=== PATIENT | male | born 1990 | race Caucasian/White ===

== ENCOUNTER 2016-06-22 01:40 | Emergency (ER) | payer OTHER ==
[~2016-06-22] VITALS: Ht 180.3 cm; Wt 76.6 kg
[~2016-06-22 01:40] MED LIST: DICL75 PO; VENL25TA14 PO
[2016-06-22 01:50] VITALS: BP 128/61; PULSE 66; RESP 18; TEMP 98.2; O2SAT 99
[2016-06-22 03:21] VITALS: BP 126/66; PULSE 68; RESP 18; TEMP 98.2; O2SAT 99
[2016-06-22] MEDS ORDERED: VENL37.5 PO (03:21)
--- NOTE | 2016-06-22 04:09 | RADHPO ---
EXAM DATE/TIME: 06/22/2016 03:45 [place] COMPARISON: No previous studies available for comparison. INDICATIONS : Right hand, third and fouth digit pain. MEDICAL HISTORY : None. SURGICAL HISTORY : None. ENCOUNTER: Initial ACUITY: 1 day PAIN SCORE: 9/10 LOCATION: Right upper extremity FINDINGS: Three view examination of the right hand demonstrates no soft tissue swelling, dislocation, or fractu re. The carpal bones appear intact. The interphalangeal and metacarpophalangeal joints are intact. Bony mineralization is normal. CONCLUSION: No fracture of the right hand. No radiopaque foreign body. Demetrio Estrella MD on June 22, 2016 at 4:08 Board Certified Radiologist. This report was verified electronically.
--- NOTE | 2016-06-22 04:27 | PD ---
HPI Chief Complaint: Musculoskeletal Complaint Time Seen by Provider: 04:08 Travel History International Travel<30 days: No Contact w/Intl Traveler<30days: No Traveled to known affect area: No History of Present Illness HPI The patient is a 26-year-old right-hand dominant male who jammed his right long and ring fingers at 0 600 on a metal truck door. 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 He comes in today with painful fingers, subungual hematomas in those fingers. His last tetanus shot was in 2014. PFSH Past Medical History Cancer: No Cardiovascular Problems: No Diminished Hearing: No Endocrine: No Gastrointestinal Disorders: No Genitourinary: No Immune Disorder: No Implanted Vascular Access Dvce: No Musculoskeletal: No Neurologic: No Psychiatric: No Reproductive: No Respiratory: No Integumentary: Yes (Right groin abcess) Immunizations Current: Yes Tetanus Vaccination: < 5 Years Influenza Vaccination: No Past Surgical History Other Surgery: Yes (LACERATED LIVER) Social History Alcohol Use: Yes (2 PER DAY) Tobacco Use: Yes (1/2 PPD) Substance Use: No (Denies) Allergies-Medications (Allergen,Severity, Reaction): Coded Allergies: No Known Allergies (Verified , 06/22/16) Reported Meds & Prescriptions Reported Meds & Active Scripts Active Reported Effexor (Venlafaxine HCl) 37.5 Mg Tab 37.5 Mg PO DAILY Review of Systems Except as stated in HPI: all other systems reviewed are Neg Physical Exam Narrative GENERAL: Well-nourished, well-developed patient. In moderate apparent distress with his subungual hematomas. His vital signs are normal. SKIN: Warm and dry. HEAD: Normocephalic. EYES: No scleral icterus. No injection or drainage. NECK: Supple, trachea midline. No JVD or lymphadenopathy. CARDIOVASCULAR: Regular rate and rhythm without murmurs, gallops, or rubs. RESPIRATORY: Breath sounds equal bilaterally. No accessory muscle use. GASTROINTESTINAL: Abdomen soft, non-tender, nondistended. MUSCULOSKELETAL: No cyanosis, or edema. There are subungual hematomas but no bony deformity on the right fourth and fifth fingers. Good capillary refill is present on all fingers. BACK: Nontender without obvious deformity. No CVA tenderness. Data Data Last Documented VS Vital Signs Date Time Temp Pulse Resp B/P Pulse Ox O2 Delivery O2 Flow Rate FiO2 06/22/16 03:24 64 18 06/22/16 03:21 98.2 126/66 99 Orders Hand, Complete ([id number]) (06/22/16 ) MDM Medical Decision Making Medical Screen Exam Complete: Yes Emergency Medical Condition: Yes Medical Record Reviewed: Yes Interpretation(s) X-rays of the right hand show no fractures of the right hand. Differential Diagnosis Fractured fingers, somewhat low hematoma fingers, finger nail avulsion Narrative Course There is no evidence of nail avulsion. The patient has no fractures of the fingers. Procedures Procedure Narrative A high temporal artery loop was used to create holes in the fingernails and let the blood out of the subungual hematomas. Blood came out of both fingernails and this relieved the pressure. The patient then soaked his fingers and peroxide. He tolerated the procedure fairly well. Diagnosis Primary Impression: Subungual hematoma of right middle finger Additional Impression: Subungual hematoma of right ring finger Ruled Out: Fracture, finger Additional Instructions: As we discussed, soak the fingers and peroxide to get as much blood out from underneath the fingernails as possible. If you have any problems like infection , please return to emergency department. Med/Other Pt SpecificInfo: No Change to Meds Disposition: 01 DISCHARGE HOME Condition: Stable Juan Antonio Mcginnis MD Jun 22, 2016 04:27
[2016-06-22] MEDS ORDERED: oxyCODONE/ACETAMINOPHEN 7.5 MG/325 MG TAB PO ONE (04:30)
[2016-06-22 04:36] VITALS: BP 124/66; PULSE 72; RESP 18; O2SAT 99
== END 2016-06-22 04:37 | disposition home or self-care (01) ==
LOC: PHED 01:40
DX: S60.131A Contusion of right middle finger with damage to nail, initial encounter (principal); S60.141A Contusion of right ring finger with damage to nail, initial encounter; F17.200 Nicotine dependence, unspecified, uncomplicated; Z87.2 Personal history of diseases of the skin and subcutaneous tissue; W23.1XXA Caught, crushed, jammed, or pinched between stationary objects, initial encounter; Y99.0 Civilian activity done for income or pay
CPT/HCPCS: 11740; 73130

== ENCOUNTER 2016-09-24 15:57 | Emergency (ER) | payer OTHER ==
[~2016-09-24] VITALS: Ht 180.3 cm; Wt 72.2 kg
[~2016-09-24 15:57] MED LIST changes: -DICL75 PO; -VENL25TA14 PO; +VENL37.5 PO
[2016-09-24 16:01] VITALS: BP 118/72; PULSE 79; RESP 16; TEMP 98.5; O2SAT 97
--- NOTE | 2016-09-24 16:17 | PD ---
HPI Chief Complaint: Laceration/Skin Injury Time Seen by Provider: 16:16 Travel History International Travel<30 days: No Contact w/Intl Traveler<30days: No Traveled to known affect area: No History of Present Illness HPI 26-year-old male presents to the emergency department for evaluation of laceration to the right anterior knee that occurred just prior to arrival. 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 He states his tetanus immunization was 5 years ago. He has no chronic medical problems and takes no medications. He denies any other injuries. PFSH Past Medical History Depression: Yes Cancer: No Cardiovascular Problems: No Diminished Hearing: No Endocrine: No Gastrointestinal Disorders: No Genitourinary: No Immune Disorder: No Implanted Vascular Access Dvce: No Musculoskeletal: No Neurologic: No Psychiatric: No Reproductive: No Respiratory: No Integumentary: Yes (Right groin abcess) Immunizations Current: Yes Tetanus Vaccination: < 5 Years Influenza Vaccination: No Past Surgical History Other Surgery: Yes (LACERATED LIVER) Social History Alcohol Use: Yes (~4 X WEEK) Tobacco Use: Yes (1PPD) Substance Use: No (Denies) Allergies-Medications (Allergen,Severity, Reaction): Coded Allergies: No Known Allergies (Verified , 09/24/16) Reported Meds & Prescriptions Reported Meds & Active Scripts Active Reported Effexor (Venlafaxine HCl) 37.5 Mg Tab 37.5 Mg PO DAILY Review of Systems Except as stated in HPI: all other systems reviewed are Neg Physical Exam Narrative GENERAL: Well-nourished, well-developed male patient, ambulatory. Afebrile. SKIN: Focused skin assessment warm/dry. Patient has a 3 cm superficial laceration to the right lower anterior knee. The base this wound is easily visualized with help bleeding and there is no evidence of foreign body. HEAD: Normocephalic. Atraumatic. EYES: No scleral icterus. No injection or drainage. NECK: Supple, trachea midline. No JVD or lymphadenopathy. CARDIOVASCULAR: Regular rate and rhythm without murmurs, gallops, or rubs. RESPIRATORY: Breath sounds equal bilaterally. No accessory muscle use. Lungs sounds are clear to auscultation. GASTROINTESTINAL: Abdomen soft, non-tender, nondistended. MUSCULOSKELETAL: No cyanosis, or edema. Patient is full flexion-extension of the right knee without difficulty. BACK: Nontender without obvious deformity. No CVA tenderness. Data Data Last Documented VS Vital Signs Date Time Temp Pulse Resp B/P Pulse Ox O2 Delivery O2 Flow Rate FiO2 09/24/16 16:01 98.5 79 16 118/72 97 Orders Tetanus/Diphtheria Tox Adult (Tetanus/Di (09/24/16 16:30) MDM Medical Decision Making Medical Screen Exam Complete: Yes Emergency Medical Condition: Yes Medical Record Reviewed: Yes Differential Diagnosis Laceration versus abrasion versus contusion Narrative Course 26-year-old male presents to the emergency department for evaluation of laceration to the right knee. He gives verbal consent for laceration repair. Patient is provided Yannick bandage and crutches to prevent flexion of the right knee. He is prescribed Keflex as well as ibuprofen for pain. He is instructed on proper wound care. He is return for any acute worsening of symptoms. He verbalizes agreement and understanding. 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 The patient was discharged in stable condition with instructions, including return instructions and follow up instructions. Procedures Procedure Narrative LACERATION LOCATION: Right knee LENGTH: 3 cm NUMBER OF STITCHES/FLYNN: 4 flynn REPAIR: The area of the laceration was prepped with Betadine and sterilely draped. The wound was copiously irrigated and explored without evidence of foreign body, tendon injury or neurovascular injury. The wound was closed using flynn. This was a single layer repair. A sterile dressing was applied. The patient was advised to keep the dressing clean and dry. Patient tolerated the procedure well. Diagnosis Primary Impression: Laceration of knee without complication Qualified Code: S81.011A - Laceration of knee without complication, right, initial encounter Referrals: Primary Care Physician call for appointment Patient Instructions: Care For Your Stitches (ED), General Instructions, Laceration (ED) Departure Forms: Tests/Procedures, Work Release Enter return to work date: October 04, 2016 Special Instructions: No bending of the right knee due to laceration of the knee Additional Instructions: Clean laceration twice daily with soap and water and apply [id number] antibiotic ointment. Keep clean and dry. Take antibiotic as directed until gone. Avoid bending the right knee. Use Yannick bandage and crutches to prevent excessive movement of the right knee. Take ibuprofen as started as needed with food for pain. Suture removal in 10-14 days. You may follow up with your primary care physician or return to the emergency department. Return to the emergency department for any acute worsening of symptoms. Med/Other Pt SpecificInfo: Prescription(s) given Scripts Ibuprofen 800 Mg [id number] Mg PO TID PRN (PAIN SCALE 1 TO 10) #21 TAB Ref 0 Prov:Kristy Lance 09/24/16 Cephalexin (Keflex)500 Mg [id number] Mg PO Q8H 7 Days Ref 0 Prov:Kristy Lance 09/24/16 Disposition: 01 DISCHARGE HOME Condition: Stable Kristy Lance September 24, 2016 16:17
[2016-09-24] MEDS ORDERED: TETANUS/DIPHTHERIA TOXOID ADULT 0.5 ML VIAL IM ONE (16:30)
[2016-09-24] MEDS ORDERED: CEPH-460 PO (16:31)
[2016-09-24] MEDS ORDERED: IBUP800T23 PO (16:31)
== END 2016-09-24 16:45 | disposition home or self-care (01) ==
LOC: PHEFT 15:57
DX: S81.011A Laceration without foreign body, right knee, initial encounter (principal); F17.200 Nicotine dependence, unspecified, uncomplicated; F32.9 Major depressive disorder, single episode, unspecified; X58.XXXA Exposure to other specified factors, initial encounter; Z23 Encounter for immunization
CPT/HCPCS: 12002; 90471; 90714; 99282; E0113

== ENCOUNTER 2016-10-04 14:10 | Emergency (ER) | payer OTHER ==
[~2016-10-04] VITALS: Ht 180.3 cm; Wt 72.0 kg
[~2016-10-04 14:10] MED LIST changes: +CEPH-460 PO; +IBUP800T23 PO
[2016-10-04 14:22] VITALS: BP 117/80; PULSE 80; RESP 16; TEMP 98.1; O2SAT 97
[2016-10-04] MEDS ORDERED: CEPH-461 PO (14:35)
--- NOTE | 2016-10-04 14:40 | PD ---
HPI Chief Complaint: Wound/Suture/Staple Re-Check Time Seen by Provider: 14:36 Travel History International Travel<30 days: No Contact w/Intl Traveler<30days: No Traveled to known affect area: No History of Present Illness HPI 26-year-old male presents to the emergency room for suture removal. Patient had 4 juliette placed in his right knee 10 days ago. He denies any pain or drainage. He has been keeping wound clean and dry. He has been taking prescribed antibiotics as prescribed. PFSH Past Medical History Depression: Yes Cancer: No Cardiovascular Problems: No Diminished Hearing: No Endocrine: No Gastrointestinal Disorders: No Genitourinary: No Immune Disorder: No Implanted Vascular Access Dvce: No Musculoskeletal: No Neurologic: No Psychiatric: No Reproductive: No Respiratory: No Integumentary: Yes (Right groin abcess) Immunizations Current: Yes Past Surgical History Other Surgery: Yes (LACERATED LIVER) Social History Alcohol Use: Yes (~4 X WEEK) Tobacco Use: Yes (1PPD) Substance Use: No (Denies) Allergies-Medications (Allergen,Severity, Reaction): Coded Allergies: No Known Allergies (Verified , 10/04/16) Reported Meds & Prescriptions Reported Meds & Active Scripts Active Reported Keflex (Cephalexin) 750 Mg Cap 750 Mg PO Q6H Review of Systems Except as stated in HPI: all other systems reviewed are Neg Physical Exam Narrative GENERAL: Well-nourished, well-developed male in no acute distress. Afebrile. Ambulatory. SKIN: Focused skin assessment warm/dry. There is a 4 cm well-healed laceration on the right anterior knee. It is not bleeding and without evidence of infection. 4 intact juliette. HEAD: Normocephalic. EYES: No scleral icterus. No injection or drainage. NECK: Supple, trachea midline. No JVD or lymphadenopathy. CARDIOVASCULAR: Regular rate and rhythm without murmurs, gallops, or rubs. RESPIRATORY: Breath sounds equal bilaterally. No accessory muscle use. MUSCULOSKELETAL: No cyanosis, or edema. Data Data Last Documented VS Vital Signs Date Time Temp Pulse Resp B/P Pulse Ox O2 Delivery O2 Flow Rate FiO2 10/04/16 14:22 98.1 80 16 117/80 97 MDM Medical Decision Making Medical Screen Exam Complete: Yes Emergency Medical Condition: Yes Medical Record Reviewed: Yes Differential Diagnosis Laceration versus abrasion versus suture versus wound infection versus staple removal Narrative Course 26-year-old male presents to the emergency room for staple removal. Patient had 4 juliette placed 10 days ago after lacerating his right anterior knee. Physical exam is unremarkable. There are 4 intact juliette and wound is well approximated. No drainage or evidence of infection. [place] removed without difficulty. Patient discharged with wound care instructions and told to follow up with the primary as needed or return for worsening symptoms. He understands and agrees to plan. Diagnosis Primary Impression: Removal of staple Referrals: Primary Care Physician Patient Instructions: General Instructions, Stitches Removal (ED) Additional Instructions: Rest and drink plenty of fluids. Continue to keep wound clean and dry until scab falls off. Follow up with a primary care physician. Return to emergency room for worsening symptoms, as discussed. Disposition: 01 DISCHARGE HOME Condition: Stable Delilah Coles October 04, 2016 14:40
== END 2016-10-04 15:13 | disposition home or self-care (01) ==
LOC: PHEFT 14:10
DX: Z48.02 Encounter for removal of sutures (principal); F32.9 Major depressive disorder, single episode, unspecified; F17.200 Nicotine dependence, unspecified, uncomplicated
CPT/HCPCS: 99281

== ENCOUNTER 2017-07-29 10:41 | Emergency (ER) | payer OTHER ==
[~2017-07-29] VITALS: Ht 180.3 cm; Wt 73.5 kg
[~2017-07-29 10:41] MED LIST changes: -CEPH-460 PO; +CEPH-461 PO; -IBUP800T23 PO; -VENL37.5 PO
[2017-07-29 10:45] VITALS: BP 123/70; PULSE 60; RESP 18; TEMP 98.7; O2SAT 98
[2017-07-29] MEDS ORDERED: SODIUM CHLOR 0.9% 1000 ML INJ 1,000 ML IV ONE ×2 (11:00→12:30)
[2017-07-29] MEDS ORDERED: ONDANSETRON HCL 4 MG/2 ML VIAL IV PUSH ONE (11:00)
--- NOTE | 2017-07-29 11:02 | PD ---
HPI Chief Complaint: GI Complaint Time Seen by Provider: 10:54 Travel History International Travel<30 days: No Contact w/Intl Traveler<30days: No Traveled to known affect area: No History of Present Illness HPI This 27-year-old male is complaining of vomiting and general malaise. He says he been sick for about 3 or 4 days. He has a daughter who was also vomiting for 3-4 days she is feeling better now. This morning he woke up with crampy pain in his shoulders and neck. He is having crampy midabdominal pain. He had a lot of diarrhea yesterday. He is generally healthy on no medications. PFSH Past Medical History Depression: Yes Cancer: No Cardiovascular Problems: No Diminished Hearing: No Endocrine: No Gastrointestinal Disorders: No Genitourinary: No Immune Disorder: No Implanted Vascular Access Dvce: No Musculoskeletal: No Neurologic: No Psychiatric: No Reproductive: No Respiratory: No Integumentary: Yes (Right groin abcess) Immunizations Current: Yes ?: Not Past Surgical History Other Surgery: Yes (LACERATED LIVER) Social History Alcohol Use: Yes (~4 X WEEK) Tobacco Use: Yes (1PPD) Substance Use: No (Denies) Allergies-Medications (Allergen,Severity, Reaction): Coded Allergies: No Known Allergies (Verified Adverse Reaction, Unknown, 07/29/17) Reported Meds & Prescriptions Reported Meds & Active Scripts Active Review of Systems General / Constitutional: No: Fever, Chills Eyes: No: Diploplia, Blurred Vision HENT: No: Headaches, Vertigo Cardiovascular: No: Chest Pain or Discomfort, Palpitations Respiratory: No: Cough, Shortness of Breath Gastrointestinal: Positive: Nausea, Vomiting, Diarrhea, Abdominal Pain Genitourinary: No: Urgency, Frequency Musculoskeletal: Positive: Myalgias Skin: No Rash Neurologic: No: Weakness, Dizziness Endocrine: No: Heat Intolerance Hematologic/Lymphatic: No: Easy Bruising Physical Exam Narrative GENERAL: Well-developed male. SKIN: Focused skin assessment warm/dry. HEAD: Atraumatic. Normocephalic. EYES: Pupils equal and round. No scleral icterus. No injection or drainage. ENT: No nasal bleeding or discharge. Mucous membranes pink and moist. NECK: Trachea midline. No JVD. CARDIOVASCULAR: Regular rate and rhythm. No murmur appreciated. RESPIRATORY: No accessory muscle use. Clear to auscultation. Breath sounds equal bilaterally. GASTROINTESTINAL: Abdomen soft, non-tender, nondistended. Hepatic and splenic margins not palpable. MUSCULOSKELETAL: No obvious deformities. No clubbing. No cyanosis. No edema. NEUROLOGICAL: Awake and alert. No obvious cranial nerve deficits. Motor grossly within normal limits. Normal speech. PSYCHIATRIC: Appropriate mood and affect; insight and judgment normal. Data Data Last Documented VS Vital Signs Date Time Temp Pulse Resp B/P (MAP) Pulse Ox O2 Delivery O2 Flow Rate FiO2 07/29/17 13:00 58 20 102/52 (69) 98 Room Air 07/29/17 10:45 98.7 Orders Orders Complete Blood Count With Diff (07/29/17 10:58) Comprehensive Metabolic Panel (07/29/17 10:58) Magnesium (Mg) (07/29/17 10:58) Sodium Chlor 0.9% 1000 Ml Inj (Ns 1000 M (07/29/17 11:00) Ondansetron Inj (Zofran Inj) (07/29/17 11:00) Sodium Chlor 0.9% 1000 Ml Inj (Ns 1000 M (07/29/17 12:30) Potassium Chloride (Kcl) (07/29/17 12:30) Acetaminophen (Tylenol) (07/29/17 12:30) Morphine Inj (Morphine Inj) (07/29/17 12:30) Morphine Inj (Morphine Inj) (07/29/17 12:30) Potassium Chlor 10 Meq Premix (Kcl 10 Me (07/29/17 12:30) Promethazine Inj (Phenergan Inj) (07/29/17 13:15) Labs Laboratory Tests Test 07/29/17 11:15 White Blood Count 11.5 TH/MM3 Red Blood Count 5.34 MIL/MM3 Hemoglobin 15.8 GM/DL Hematocrit 46.8 % Mean Corpuscular Volume 87.6 FL Mean Corpuscular Hemoglobin 29.6 PG Mean Corpuscular Hemoglobin Concent 33.8 % Red Cell Distribution Width 13.2 % Platelet Count 175 TH/MM3 Mean Platelet Volume 9.8 FL Neutrophils (%) (Auto) 64.7 % Lymphocytes (%) (Auto) 17.0 % Monocytes (%) (Auto) 15.2 % Eosinophils (%) (Auto) 2.3 % Basophils (%) (Auto) 0.8 % Neutrophils # (Auto) 7.4 TH/MM3 Lymphocytes # (Auto) 2.0 TH/MM3 Monocytes # (Auto) 1.7 TH/MM3 Eosinophils # (Auto) 0.3 TH/MM3 Basophils # (Auto) 0.1 TH/MM3 CBC Comment AUTO DIFF Differential Comment AUTO DIFF CONFIRMED Blood Urea Nitrogen 17 MG/DL Creatinine 0.91 MG/DL Random Glucose 106 MG/DL Total Protein 7.5 GM/DL Albumin 4.0 GM/DL Calcium Level 8.6 MG/DL Magnesium Level 2.0 MG/DL Alkaline Phosphatase 86 U/L Aspartate Amino Transf (AST/SGOT) 25 U/L Alanine Aminotransferase (ALT/SGPT) 23 U/L Total Bilirubin 0.3 MG/DL Sodium Level 136 MEQ/L Potassium Level 2.9 MEQ/L Chloride Level 101 MEQ/L Carbon Dioxide Level 28.7 MEQ/L Anion Gap 6 MEQ/L Estimat Glomerular Filtration Rate 101 ML/MIN [facility] Medical Decision Making Medical Screen Exam Complete: Yes Emergency Medical Condition: Yes Medical Record Reviewed: Yes Differential Diagnosis Differential includes gastroenteritis, dehydration, electrolyte imbalance Narrative Course Patient has been given IV fluids. His hemoglobin is 15 with a white count of 11 ,000. Sodium is 136 and potassium is 2.6. I believe his hypokalemia is why he was having muscle spasms this morning. He has been given IV fluids and antiemetics. We have given some supplemental potassium. Patient has been given IV fluid and has tolerated oral challenge. He is stable for discharge Diagnosis Primary Impression: Acute gastroenteritis Additional Instructions: Lots of bananas today Scripts Ondansetron Odt (Zofran Odt) 4 Mg Tab 4 MG SL Q6HR Y for Nausea/Vomiting, #10 TAB 0 Refills Prov: Tomasz Arndt MD 07/29/17 Disposition: DISCHARGE HOME Condition: Stable Tomasz Arndt MD Jul 29, 2017 11:01
[2017-07-29 11:31] LABS: AUTOMATED NEUTROPHIL # 7.4 TH/MM3 (1.8-7.7); BASOPHIL # 0.1 TH/MM3 (0-0.2); BASOPHIL % 0.8 % (0.0-2.0); EOSINOPHIL # 0.3 TH/MM3 (0-0.4); EOSINOPHIL % 2.3 % (0.0-4.0); HEMATOCRIT 46.8 % (39.0-51.0); HEMOGLOBIN 15.8 GM/DL (13.0-17.0); MEAN CELL VOLUME 87.6 FL (80.0-100.0); MEAN CORPUSCULAR HEMOGLOBIN 29.6 PG (27.0-34.0); MEAN CORPUSCULAR HGB CONC 33.8 % (32.0-36.0); MEAN PLATELET VOLUME 9.8 FL (7.0-11.0); MONO % 15.2 % (0.0-8.0); MONOCYTE # 1.7 TH/MM3 (0-0.9); NEUT % 64.7 % (16.0-70.0); PLATELET COUNT 175 TH/MM3 (150-450); RED BLOOD COUNT 5.34 MIL/MM3 (4.50-5.90); RED CELL DISTRIBUTION WIDTH 13.2 % (11.6-17.2); WHITE BLOOD COUNT 11.5 TH/MM3 (4.0-11.0)
[2017-07-29 12:24] LABS: ALKALINE PHOSPHATASE 86 U/L (45-117); ALT (GPT) 23 U/L (12-78); AST (GOT) 25 U/L (15-37); BICARBONATE 28.7 MEQ/L (21.0-32.0); BLOOD UREA NITROGEN 17 MG/DL (7-18); CALCIUM 8.6 MG/DL (8.5-10.1); CHLORIDE 101 MEQ/L (98-107); CREATININE 0.91 MG/DL (0.60-1.30); GLOMERULAR FILTRATION RATE 101 ML/MIN (>89); GLUCOSE,RANDOM 106 MG/DL (74-106); SODIUM (NA) 136 MEQ/L (136-145); TOTAL BILIRUBIN ADULT 0.3 MG/DL (0.2-1.0); TOTAL PROTEIN 7.5 GM/DL (6.4-8.2)
[2017-07-29] MEDS ORDERED: POTASSIUM CHLORIDE 20 MEQ CONTROLLED RELEASE TAB PO ONE (12:30)
[2017-07-29] MEDS ORDERED: MORPHINE SULFATE 4 MG/ML INJ IV PUSH ONE ×2 (12:30)
[2017-07-29] MEDS ORDERED: POTASSIUM CHLOR 10 MEQ PREMIX 100 ML IV ONE (12:30)
[2017-07-29] MEDS ORDERED: ACETAMINOPHEN 325 MG TAB PO ONE (12:30)
[2017-07-29 13:00] VITALS: BP 102/52; PULSE 58; RESP 20; O2SAT 98
[2017-07-29] MEDS ORDERED: PROMETHAZINE INJ 25 MG/ML VIAL IM ONE (13:15)
[2017-07-29] MEDS ORDERED: ZOFR4TAB3 SL (14:26)
[2017-07-29 15:16] VITALS: BP 98/53
== END 2017-07-29 15:36 | disposition home or self-care (01) ==
LOC: PHED 10:41
DX: K52.9 Noninfective gastroenteritis and colitis, unspecified (principal); E87.6 Hypokalemia; M62.838 Other muscle spasm; R53.81 Other malaise; F17.200 Nicotine dependence, unspecified, uncomplicated
CPT/HCPCS: 80053; 83735; 85025; 96361; 96365; 96372; 96375; 99284; J2270; J2405; J2550; J3480; J7030